=== PATIENT | male | born 1960 | race Caucasian/White ===

== ENCOUNTER 2018-05-03 00:02 | Emergency (ER) | payer BC ==
[~2018-05-03] VITALS: Ht 182.9 cm; Wt 104.5 kg
[2018-05-03 00:19] LABS: GFR > 60 ML/MIN (>=60 (CALC)); GFR FOR AFR.AMER. > 60 ML/MIN (>=60 (CALC))
[2018-05-03 00:21] LABS: HEMATOCRIT 45.9 % (39.0-50.0); HEMOGLOBIN 16.3 g/dl (14.0-18.0); IMMATURE GRANULOCYTES 0.5 % (0.0-5.0); MEAN CELL VOLUME 88.4 fL CALC (80.0-100.0); MEAN CORPUSCULAR HGB 31.4 pG CALC (26.0-32.0); MEAN CORPUSCULAR HGB CONC 35.5 g/L CALC (32.0-36.0); NEUT# 6.42 thou/uL (1.82-7.42); RED BLOOD COUNT 5.19 mill/uL (4.70-6.10); RED CELL DISTRI WIDTH 12.1 % (11.5-15.5)
[2018-05-03] MEDS ORDERED: INVOKANA300 MG PO (00:29)
[2018-05-03 00:30] LABS: ALBUMIN 4.7 g/dL (3.2-5.0); ALKALINE PHOSPHATASE 57 u/l (38-126); ANION GAP 20 (6-22 (CALC)); BILIRUBIN, TOTAL 0.5 mg/dL (0.0-1.4); BUN 23 mg/dL (9-20); BUN/CREATININE RATIO 23 (12-20 (CALC)); CARBON DIOXIDE 24 mmol/l (22-30); CHLORIDE 97 mmol/l (95-108); GFR > 60 ML/MIN (>=60 (CALC)); GFR FOR AFR.AMER. > 60 ML/MIN (>=60 (CALC)); POTASSIUM 3.7 mmol/l (3.5-5.1); SGOT/AST 27 u/l (17-59); SODIUM 137 mmol/l (137-146); TOTAL PROTEIN 8.2 g/dL (6.3-8.2)
[2018-05-03] MEDS ORDERED: LISINOP/HCTZ1 TAB PO (00:32)
[2018-05-03] MEDS ORDERED: SIMVASTATIN20 MG PO (00:33)
[2018-05-03] MEDS ORDERED: METFORMIN500 MG PO (00:34)
[2018-05-03] MEDS ORDERED: TRULICITY0.75 MG/0. (00:34)
[2018-05-03 00:37] LABS: ACT PARTIAL THROMBO TIME 28.2 SECONDS (20.0-32.5); PROTHROMBIN TIME 10.7 SECONDS (9.0-12.5)
[2018-05-03 00:42] LABS: MYOGLOBIN 40 ng/mL (0 - 121)
[2018-05-03 02:06] VITALS: BP 183/99
== END 2018-05-03 01:05 | disposition short-term general hospital (02) | DRG 65 ==
LOC: ED 00:02
PROVIDERS: Family Medicine
DX: I63.9 Cerebral infarction, unspecified (principal); G81.90 Hemiplegia, unspecified affecting unspecified side; R47.01 Aphasia; I10 Essential (primary) hypertension; R29.712 NIHSS score 12; R47.1 Dysarthria and anarthria; R00.0 Tachycardia, unspecified; R51 Headache; R26.2 Difficulty in walking, not elsewhere classified
CPT/HCPCS: Q9967

== ENCOUNTER 2021-02-24 08:24 | Day surgery (SDC) | payer BC ==
[~2021-02-24] VITALS: Ht 182.9 cm; Wt 100.7 kg
[~2021-02-24 08:24] MED LIST: ASPIRIN325 MG PO; INVOKANA300 MG PO; JARDIANCE25 MG PO; LIPITOR40 M1 PO; LISINOP/HCTZ1 TAB PO; METFORMIN500 MG PO; NORVASC5 M1 PO; SIMVASTATIN20 MG PO; TRULICITY0.75 MG/0. SC
[2021-02-24 10:44] VITALS: BP 114/69
== END 2021-02-24 10:43 | disposition home or self-care (01) | DRG 951 ==
LOC: ENDO 08:24
PROVIDERS: ATTEND Surgery
PROC: 0DJD8ZZ Inspection of Lower Intestinal Tract, Via Natural or Artificial Opening Endoscopic (ICD-10-PCS; principal; 2021-02-24)
DX: Z12.11 Encounter for screening for malignant neoplasm of colon (principal); I10 Essential (primary) hypertension; E11.9 Type 2 diabetes mellitus without complications; Z79.84 Long term (current) use of oral hypoglycemic drugs

== ENCOUNTER 2021-10-16 13:24 | Emergency (ER) | payer BC ==
[~2021-10-16] VITALS: Ht 182.9 cm; Wt 103.8 kg
[2021-10-16] VITALS (11 sets, daily range): BP systolic 112–147; BP diastolic 67–93
[2021-10-16 14:29] LABS: HEMATOCRIT 44.3 % (39.0-50.0); HEMOGLOBIN 14.8 g/dl (14.0-18.0); IMMATURE GRANULOCYTES 1.1 % (0.0-5.0); MEAN CELL VOLUME 92.3 fL CALC (80.0-100.0); MEAN CORPUSCULAR HGB 30.8 pG CALC (26.0-32.0); MEAN CORPUSCULAR HGB CONC 33.4 g/dL CAL (32.0-36.0); NEUT# 6.63 thou/uL (1.82-7.42); RED BLOOD COUNT 4.8 mill/uL (4.70-6.10); RED CELL DISTRI WIDTH 12.4 % (11.5-15.5)
[2021-10-16 14:47] LABS: ALBUMIN 4.4 g/dL (3.2-5.0); ALKALINE PHOSPHATASE 66 u/l (38-126); ANION GAP 14 (6-22 (CALC)); BILIRUBIN, TOTAL 0.5 mg/dL (0.0-1.4); BUN 16 mg/dL (9-20); BUN/CREATININE RATIO 21 (12-20 (CALC)); CARBON DIOXIDE 25 mmol/l (22-30); CHLORIDE 103 mmol/l (95-108); CREATININE 0.8 mg/dL (0.7-1.3); GFR > 60 ML/MIN (>=60 (CALC)); GFR FOR AFR.AMER. > 60 ML/MIN (>=60 (CALC)); LIPASE 105 u/l (23-300); POTASSIUM 4.1 mmol/l (3.5-5.1); SGOT/AST 24 u/l (17-59); SODIUM 138 mmol/l (137-146); TOTAL PROTEIN 7.7 g/dL (6.3-8.2)
[2021-10-16 14:58] LABS: ACT PARTIAL THROMBO TIME 27.2 SECONDS (20.0-32.5); PROTHROMBIN TIME 10.4 SECONDS (9.0-12.5)
[2021-10-16] MEDS ORDERED: PAXLOVID PO (17:06)
== END 2021-10-16 17:50 | disposition home or self-care (01) | DRG 179 ==
LOC: ED 13:24
DX: U07.1 COVID-19 (principal); E86.0 Dehydration; R07.9 Chest pain, unspecified; R05.9 Cough, unspecified; R51.9 Headache, unspecified; M25.50 Pain in unspecified joint; I10 Essential (primary) hypertension; I48.91 Unspecified atrial fibrillation; Z86.73 Personal history of transient ischemic attack (TIA), and cerebral infarction without residual deficits
CPT/HCPCS: Q9967

== ENCOUNTER 2021-10-25 09:04 | Emergency (ER) | payer BC ==
[~2021-10-25] VITALS: Ht 182.9 cm; Wt 99.0 kg
[2021-10-25] VITALS (23 sets, daily range): BP systolic 117–147; BP diastolic 73–95
[~2021-10-25 09:04] MED LIST changes: +PAXLOVID PO
[2021-10-25 09:54] LABS: HEMOGLOBIN 16.1 g/dl (14.0-18.0); IMMATURE GRANULOCYTES 2.7 % (0.0-5.0); MEAN CELL VOLUME 89.2 fL CALC (80.0-100.0); MEAN CORPUSCULAR HGB 30.6 pG CALC (26.0-32.0); MEAN CORPUSCULAR HGB CONC 34.3 g/dL CAL (32.0-36.0); NEUT# 6.33 thou/uL (1.82-7.42); RED BLOOD COUNT 5.27 mill/uL (4.70-6.10); RED CELL DISTRI WIDTH 11.7 % (11.5-15.5)
[2021-10-25 10:17] LABS: ALKALINE PHOSPHATASE 58 u/l (38-126); BUN 22 mg/dL (9-20); BUN/CREATININE RATIO 30 (12-20 (CALC)); CARBON DIOXIDE 27 mmol/l (22-30); CHLORIDE 94 mmol/l (95-108); CREATININE 0.8 mg/dL (0.7-1.3); GFR FOR AFR.AMER. > 60 ML/MIN (>=60 (CALC)); GFR OTHER RACES > 60 ML/MIN (>=60 (CALC)); SGOT/AST 27 u/l (17-59); TOTAL PROTEIN 6.3 g/dL (6.3-8.2)
[2021-10-25 10:18] LABS: POTASSIUM 4.2 mmol/l (3.5-5.1)
[2021-10-25 10:23] LABS: ALBUMIN 3.5 g/dL (3.2-5.0); ANION GAP 13 (6-22 (CALC)); BILIRUBIN, TOTAL 0.9 mg/dL (0.0-1.4); SODIUM 130 mmol/l (137-146)
[2021-10-25 10:30] LABS: MYOGLOBIN 66 ng/mL (0 - 121)
[2021-10-25 12:15] LABS: URINE BILIRUBIN - DIPSTICK NEGATIVE (NEGATIVE); URINE BLOOD DIPSTICK NEGATIVE (NEGATIVE); URINE COLOR YELLOW; URINE GLUCOSE - DIPSTICK >=1000 mg/dL (NEGATIVE); URINE KETONE NEGATIVE (NEGATIVE); URINE LEUK ESTERASE NEGATIVE (NEGATIVE); URINE PROTEIN - DIPSTICK NEGATIVE (NEG-TRACE); URINE SPECIFIC GRAVITY <=1.005; URINE UROBILINOGEN - DIPSTICK 0.2 E.U./dL (0.2)
[2021-10-25 12:16] LABS: URINE NITRITE - DIPSTICK NEGATIVE (Negative)
[2021-10-25] MEDS ORDERED: ZPAK PO (12:54)
== END 2021-10-25 14:44 | disposition home or self-care (01) | DRG 179 ==
LOC: ED 09:04
PROVIDERS: Emergency Medicine
DX: U07.1 COVID-19 (principal); R53.1 Weakness; R43.8 Other disturbances of smell and taste; J02.9 Acute pharyngitis, unspecified; E86.0 Dehydration; E11.65 Type 2 diabetes mellitus with hyperglycemia; I10 Essential (primary) hypertension; Z79.84 Long term (current) use of oral hypoglycemic drugs